=== PATIENT | female | born 1975 | race Caucasian/White ===

== ENCOUNTER 2016-08-14 12:49 | Emergency (ER) | payer BC ==
--- NOTE | 2016-08-14 12:55 | EDPHY ---
H & P Stated Complaint: allergy to bees/stung on r leg/swelling locally /rx benadryl Time Seen by Provider: 08/14/16 12:55 - Personal History LMP (Females 10-55): Now Current Tetanus/Diphtheria Vaccine: Yes - Medical/Surgical History Hx Asthma: No Hx Chronic Respiratory Disease: No Hx Diabetes: No Hx Cardiac Disease: No Hx Renal Disease: No Hx Cirrhosis: No Hx Alcoholism: No Hx HIV/AIDS: No Hx Splenectomy or Spleen Trauma: No Other PMH: anxiety - Social History Smoking Status: Never smoked Constitutional: Initial Vital Signs Temperature (C) 36.5 C 08/14/16 12:51 Heart Rate 67 08/14/16 12:51 Respiratory Rate 18 08/14/16 12:51 Blood Pressure 113/85 H 08/14/16 12:51 O2 Sat (%) 96 08/14/16 12:51 O2 Delivery Mode Room Air Allergies/Adverse Reactions: No Known Allergies Allergy (Unverified 08/14/16 12:50) Home Medications: Medication Instructions Recorded EPINEPHrine [Epipen 0.3 MG (RX)] 0.3 mg IM ONCE #2 syr 08/14/16 Epi-Pen 08/14/16 Famotidine [Pepcid 20 MG (OTC)] 20 mg PO DAILY #7 tab 08/14/16 Lexapro 08/14/16 predniSONE 40 mg PO DAILY #4 tab 08/14/16 Medical Decision Making ED Course/Re-evaluation: CHIEF COMPLAINT: Allergic reaction. HISTORY OF PRESENT ILLNESS: This patient is a 41 year old female with known allergy to bees complaining of leg swelling and difficulty breathing secondary to a sting 25 minutes ago. She states she has taken 25mg oral Benadryl, and applied ice to the area of the sting. She endorses some difficulty breathing and more redness in her face than usual, but denies lip or tongue swelling or wheezes. She states that her anxiety may be contributing to her feeling of shortness of breath. No urticaria , fever, chills, chest pain, nausea, or other associated symptoms. REVIEW OF SYSTEMS: A 10 point review of systems was performed and is negative with the exception of the elements mentioned in the history of present illness. PHYSICAL EXAM: HR, BP, O2 Sat, RR. Temp noted General Appearance: Alert, well hydrated, appropriate, and non-toxic appearing. Head: No angioedema. Atraumatic without scalp tenderness or obvious injury Throat: There is no erythema or exudates, no lesions, normal tonsils, mucus membranes moist. Neck: Supple, nontender, no lymphadenopathy. Respiratory: No wheezes, no retractions, no distress, and no accessory muscle use. Lungs are clear to auscultation bilaterally. Cardiovascular: Regular rate and rhythm, no murmurs, rubs, or gallops. Good capillary refill all extremities. Gastrointestinal: Abdomen benign Musculoskeletal: Normal active ROM of all extremities, atraumatic. Neurological: Alert, appropriate, and interactive. Nonfocal neuro exam. Skin: Local erythema without induration to sting site at posterior right ankle. No lymphangitis. No urticaria. Good turgor, no nodules on palpation. Past medical history: Anxiety Past surgical history: Noncontributory Family history: Noncontributory Social history: at bedside DIFFERENTIAL DIAGNOSIS: The differential diagnosis included but was not limited to angioedema, anaphylaxis, anaphylactoid reaction, urticarial reaction, and other infectious causes for skin rash. 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 No wheezes, no angioedema, no urticaria. Exam reveals local erythema without induration to sting site at posterior right ankle. No lymphangitis. Plan for 25mg PO Benadryl, 40mg PO Pepcid, 60mg PO Prednisone. Answered patient questions. 13:43 Reassessed patient. She is feeling improved. No evidence of ongoing allergic reaction. Plan to discharge home in good condition with prescription for Prednisone, Pepcid, and EpiPen. Return precautions discussed. The patient is comfortable with this plan. - Data Points Medications Given: Discontinued Medications Diphenhydramine HCl (Benadryl) 25 mg PO EDNOW ONE Stop: 08/14/16 13:06 Last Admin: 08/14/16 13:21 Dose: 25 mg Famotidine (Pepcid) 40 mg PO EDNOW ONE Stop: 08/14/16 13:06 Last Admin: 08/14/16 13:21 Dose: 40 mg Prednisone (Prednisone) 60 mg PO EDNOW ONE Stop: 08/14/16 13:06 Last Admin: 08/14/16 13:21 Dose: 60 mg Departure - Departure Disposition: Home, Routine, Self-Care Clinical Impression: Allergic reaction Qualifiers: Encounter type: initial encounter Qualified Code(s): T78.40XA - Allergy, unspecified, initial encounter Condition: Good Instructions: Epinephrine (By injection), Anaphylaxis (ED), General Allergic Reaction (ED) Additional Instructions: 1. Take your Prednisone and Pepcid as prescribed for the next two days. 2. We will prescribe an EpiPen in case of future stings or other allergic reactions. Use this if you experience difficulty breathing, swelling of your lips and tongue, or other signs of serious allergic reaction as we discussed. Instructions and information are attached. 3. Follow up with your primary care provider for further management of your allergy regimen. 4. Return to the Emergency Department if you develop increased difficulty breathing, hives, swelling in your mouth or throat, or other worsening of condition. Referrals: Braydon Mccarty DO [Primary Care Provider] - As per Instructions Prescriptions: EPINEPHrine [Epipen 0.3 MG (RX)] 0.3 mg IM ONCE #2 syr Famotidine [Pepcid 20 MG (OTC)] 20 mg PO DAILY #7 tab predniSONE 40 mg PO DAILY #4 tab Report Scribed for: [place] Report Scribed by: Sindy Womack Date of Report: 08/14/16 Time of Report: 13:13
[2016-08-14] MEDS ORDERED: FAMOTIDINE 20 MG TAB PO ONE (13:05)
[2016-08-14] MEDS ORDERED: predniSONE 20 MG TAB PO ONE (13:05)
[2016-08-14] MEDS ORDERED: diphenhydrAMINE 25 MG CAP PO ONE (13:05)
[2016-08-14 13:54] VITALS: BP 116/69; PULSE 76; RESP 16; TEMP 98.4; O2SAT 94
== END 2016-08-14 13:54 | disposition home or self-care (01) ==
DX: T63.441A Toxic effect of venom of bees, accidental (unintentional), initial encounter (principal)